=== PATIENT | male | born 1935 | race Caucasian/White ===

== ENCOUNTER 2019-05-21 18:43 | Inpatient (IN) ==
--- NOTE | 2019-05-21 19:24 | PROVIDER DOCUMENTATION ---
HPI-Neurological Disorder - General Chief Complaint: Altered Mental Status Stated Complaint: AMS Time Seen by Provider: 05/21/19 19:22 Allergies/Adverse Reactions: Patient Allergies Allergy/AdvReac Type Severity Reaction Status Date / Time vancomycin Allergy hallucinati Verified 10/30/15 14:09 ons Home Medications: Home Medication List Medication Instructions Recorded Confirmed Last Taken Type Aspirin 81 mg PO DAILY 10/30/15 10/30/15 10/29/15 History Carvedilol 25 mg PO BID 10/30/15 10/30/15 10/29/15 History Diltiazem HCl [Cartia Xt] 240 mg PO DAILY 10/30/15 10/30/15 10/29/15 History Docusate Sodium [Stool Softener] 100 mg PO DAILY 10/30/15 10/30/15 10/29/15 History Glipizide [Glipizide ER] 5 mg PO DAILY 10/30/15 10/30/15 10/29/15 History Glucosamine/D3/Boswellia Reshma 2 each PO DAILY 10/30/15 10/30/15 10/29/15 History [Osteo Bi-Flex Caplet] Levothyroxine [Synthroid] 75 microgm PO DAILY 10/30/15 10/30/15 10/29/15 History Loratadine [Claritin] 10 mg PO DAILY 10/30/15 10/30/15 10/29/15 History Losartan Potassium 100 mg PO DAILY 10/30/15 10/30/15 10/29/15 History Omeprazole 40 mg PO DAILY 10/30/15 10/30/15 10/29/15 History Warfarin Sodium [Coumadin] 6 mg PO QHS #30 tablet 11/02/15 Unknown Rx - History of Present Illness-Neuro Nature of Presenting Problem: pt 83 yo WM w c/o increased confusion and flight of ideas according to patints family, onset 1 week ago, pt has also had cough and congestion, pt is confused and not good historian at this time. pt family also vague historians. pt has HX of several skin cancers and nasal cancer. Character of Altered Mental Status: reports: disoriented, confused Any recent trauma/injury?: reports: none New weakness or altered sensation location:: reports: none Cognitive Baseline: alert, oriented x3 Gait Baseline: uses a cane Associated Symptoms: reports: confusion Similar Symptoms Previously?: No Recently seen or treated by another doctor?: No - Seizure First time to have a seizure?: No Witnessed seizure?: No Review of Systems - Adult - REVIEW OF SYSTEMS - ADULT ROS:: limited per condition Constitutional: reports: no symptoms reported Eyes: reports: no symptoms reported Ears, Nose, Mouth & Throat: reports: no symptoms reported Cardiovascular: reports: no symptoms reported Respiratory: reports: no symptoms reported Gastrointestinal: reports: no symptoms reported Genitourinary: reports: no symptoms reported Musculoskeletal: reports: no symptoms reported Integumentary: reports: no symptoms reported Neurological: reports: see HPI Psychiatric: reports: no symptoms reported Endocrine: reports: no symptoms reported Hematologic/Lymphatic: reports: no symptoms reported Allergic/Immunologic: reports: no symptoms reported All Other Systems: Reviewed and Negative Past History - Adult - PAST MEDICAL HISTORY-ADULT Review of Records: reports: Old Records Reviewed, Nursing Assessment Review, Medications Reviewed Major Childhood Illnesses: reports: denies history Cardiovascular: reports: HTN, hyperlipidemia Endocrine/Immune: reports: Diabetes, thyroid disorder Other Conditions: reports: denies history - PRIOR SURGERIES/PROCEDURES Surgical/Procedure History: reports: orthopedic (extremity) (knee), other (hemmoroid sx) - IMMUNIZATION STATUS Childhood Immunizations: See Nurse Assessment Flu Vaccine: See Nurse Assessment - FAMILY HISTORY Family History: reviewed, not pertinent - SOCIAL HISTORY Smoking: denies Substance Use: none/never Physical Exam- Neurological - Physical Exam-Neuro Initial Vital Signs Reviewed: Yes General Appearance: appears well, alert, other (confused) Eye Exam: bilateral eye: normal inspection, PERRL, EOMI HENMT: normocephalic/atraumatic, moist mucous membranes Head Injury: no evidence of injury Neck: non-tender, full range of motion, supple Respiratory: chest non-tender, lungs clear, normal breath sounds Cardiovascular: normal peripheral pulses, regular rate, rhythm, no edema Abdominal Exam: normal bowel sounds, non tender, soft Lymphatic: no adenopathy Extremity: non-tender, normal inspection, 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 negative: facial droop, facial paresthesias, facial weakness Coordination/Gait: normal finger to nose, normal gait Motor/Sensory: no motor deficit, no pronator drift Neurologic: impact hammer operator II-XII nml as tested, grossly normal Integumentary: normal color, normal turgor Psych/Mental Status: normal mood/affect, other (severe confusion) - Glascow Coma Scale Best Eye Response: (4) open spontaneously Best Verbal Response: (5) oriented Best Motor Response: (6) obeys commands Progress - PLAN OF CARE/RESULTS Progress/Plan/Lab Results: Vital Signs - 8 hr 05/21/19 18:56 Temperature 99 F Pulse Rate 80 Respiratory Rate 16 Blood Pressure 138/76 O2 Sat by Pulse Oximetry 95 Laboratory Results - last 24 hr 05/21/19 05/21/19 05/21/19 19:00 20:02 20:02 WBC RBC Hgb Hct MCV MCH MCHC RDW Std Deviation Plt Count MPV Immature Gran % (Auto) Neut % (Auto) Lymph % (Auto) [place] % (Auto) Eos % (Auto) Baso % (Auto) Immature Gran # (Auto) Neut # (Auto) Lymph # (Auto) [place] # (Auto) Eos # (Auto) Baso # (Auto) PT INR PTT ([place] FS) Sodium Potassium Chloride Carbon Dioxide Anion Gap BUN Creatinine Estimated GFR/1.73 m2 BUN/Creatinine Ratio Glucose POC Glucose 80 Calculated Osmolality Calcium Total Bilirubin AST ALT Alkaline Phosphatase Troponin T Total Protein Albumin Globulin Albumin/Globulin Ratio Urine Source CLEAN CATCH Urine Color YELLOW Urine Turbidity CLEAR Urine pH 6.0 Ur Specific [place] 1.015 Urine Protein 50 A Ur Glucose (Stick) NEGATIVE Ur Ketones (Stick) NEGATIVE Urine Blood NEGATIVE Urine Nitrite NEGATIVE Urine Bilirubin NEGATIVE Urobilinogen Dipstick NORMAL Urine Leukocytes NEGATIVE Urine WBC (Auto) <10 Urine RBC (Auto) <10 U Epithel Cells (Auto) <10 Urine Bacteria (Auto) NEGATIVE Urine Opiates Screen NONE DETECTED Ur Oxycodone Screen NONE DETECTED Urine Methadone Screen NONE DETECTED U Propoxyphene Qual NONE DETECTED Ur Barbituates Screen NONE DETECTED Ur Tricyclics Screen NONE DETECTED Ur Phencyclidine Scrn NONE DETECTED Ur Amphetamines Screen NONE DETECTED U Methamphetamines Scrn NONE DETECTED U Benzodiazepines Scrn NONE DETECTED Urine Cocaine Screen NONE DETECTED U Cannabinoids Screen NONE DETECTED 05/21/19 05/21/19 05/21/19 20:15 20:15 20:15 WBC 6.03 RBC 4.38 L Hgb 12.4 L Hct 38.6 L MCV 88.1 MCH 28.3 MCHC 32.1 L RDW Std Deviation 14.1 Plt Count 154 MPV 10.7 H Immature Gran % (Auto) 0.2 Neut % (Auto) 69.3 Lymph % (Auto) 11.8 L [place] % (Auto) 13.4 H Eos % (Auto) 4.8 Baso % (Auto) 0.5 Immature Gran # (Auto) 0.01 Neut # (Auto) 4.18 Lymph # (Auto) 0.71 L [place] # (Auto) 0.81 H Eos # (Auto) 0.29 Baso # (Auto) 0.03 PT INR PTT (Actin FS) Sodium 139 Potassium 4.4 Chloride 100 Carbon Dioxide 24 L Anion Gap 15 BUN 30 H Creatinine 1.9 H Estimated GFR/1.73 m2 34 BUN/Creatinine Ratio 16 Glucose 124 H POC Glucose Calculated Osmolality 285 Calcium 9.2 Total Bilirubin 1.00 AST 50 H ALT 47 H Alkaline Phosphatase 192 H Troponin T < 0.010 Total Protein 7.0 Albumin 4.2 Globulin 3.0 Albumin/Globulin Ratio 2.0 Urine Source Urine Color Urine Turbidity Urine pH Ur Specific [place] Urine Protein Ur Glucose (Stick) Ur Ketones (Stick) Urine Blood Urine Nitrite Urine Bilirubin Urobilinogen Dipstick Urine Leukocytes Urine WBC (Auto) Urine RBC (Auto) U Epithel Cells (Auto) Urine Bacteria (Auto) Urine Opiates Screen Ur Oxycodone Screen Urine Methadone Screen U Propoxyphene Qual Ur Barbituates Screen Ur Tricyclics Screen Ur Phencyclidine Scrn Ur Amphetamines Screen U Methamphetamines Scrn U Benzodiazepines Scrn Urine Cocaine Screen U Cannabinoids Screen 05/21/19 20:15 WBC RBC Hgb Hct MCV MCH MCHC RDW Std Deviation Plt Count MPV Immature Gran % (Auto) Neut % (Auto) Lymph % (Auto) [place] % (Auto) Eos % (Auto) Baso % (Auto) Immature Gran # (Auto) Neut # (Auto) Lymph # (Auto) [place] # (Auto) Eos # (Auto) Baso # (Auto) PT 14.1 INR 1.04 PTT (Actin FS) 34.1 Sodium Potassium Chloride Carbon Dioxide Anion Gap BUN Creatinine Estimated GFR/1.73 m2 BUN/Creatinine Ratio Glucose POC Glucose Calculated Osmolality Calcium Total Bilirubin AST ALT Alkaline Phosphatase Troponin T Total Protein Albumin Globulin Albumin/Globulin Ratio Urine Source Urine Color Urine Turbidity Urine pH Ur Specific [place] Urine Protein Ur Glucose (Stick) Ur Ketones (Stick) Urine Blood Urine Nitrite Urine Bilirubin Urobilinogen Dipstick Urine Leukocytes Urine WBC (Auto) Urine RBC (Auto) U Epithel Cells (Auto) Urine Bacteria (Auto) Urine Opiates Screen Ur Oxycodone Screen Urine Methadone Screen U Propoxyphene Qual Ur Barbituates Screen Ur Tricyclics Screen Ur Phencyclidine Scrn Ur Amphetamines Screen U Methamphetamines Scrn U Benzodiazepines Scrn Urine Cocaine Screen U Cannabinoids Screen Orders Category Date Time Status Cardiac Monitoring DIRECTED Care 05/21/19 18:53 Active Finger Stick Blood Sugar (ED) DIRECTED Care 05/21/19 18:53 Active Misc. NRSG Communication Order DIRECTED Care 05/21/19 18:54 Active Oxygen Therapy- ED Nursing DIRECTED Care 05/21/19 18:54 Active Saline Loc NOW Care 05/21/19 18:53 Active CHEST-PORTABLE [RAD] Stat Exams 05/21/19 18:[address] HEAD W/O CONTRAST [CT] Stat Exams 05/21/19 18:53 Completed BLOOD CULTURE [BLDCUL] Stat Lab 05/21/19 20:37 Ordered CBC WITH ELECTRONIC DIFF [HEME] Stat Lab 05/21/19 20:15 Completed COMPREHENSIVE METABOLIC PANEL [CHEM] Stat Lab 05/21/19 20:15 Completed LACTATE, PLASMA [CHEM] Stat Lab 05/21/19 21:28 Ordered PROTIME WITH INR [COAG] Stat Lab 05/21/19 20:15 Completed PTT [COAG] Stat Lab 05/21/19 20:15 Completed TROPONIN T Stat Lab 05/21/19 20:15 Completed URINALYSIS W/POSS RFLX CULT [URINALYSIS] Stat Lab 05/21/19 20:02 Com[address] URINE DRUG SCREEN PL Stat Lab 05/21/19 20:02 Completed 0.9% Sodium Chloride Inj [Ns] 1,000 ml Med 05/21/19 20:24 Discontinued IV 999 mls/hr CefTRIAXONE [Rocephin] 1 gm Med 05/21/19 20:24 Discontinued 0.9% Sodium Chloride Inj [Ns] 50 ml IV NOW EKG [EKG] Stat Ther 05/21/19 18:54 Ordered discussed admission to hospital , dr fitzpatrick accepted pt. Result Diagrams: 05/21/19 20:15 05/21/19 20:15 - XRAY 1 XRAY Study: Chest Impression: Normal Comparison with other Films: no changes - CT/MRI 1 CT Study: Head CT Results: ear effusions, no acute hemmorage - CONSULTS/PCP/HOSPITALIST Notification #1 *Consult/PCP/Hospitalist*: penot Time Discussed: 21:38 Consult Disposition: Admit Departure - Departure Date of Disposition Decision: 05/21/19 Time of Disposition Decision: 21:38 DIAGNOSIS: Encephalopathy, AMS (altered mental status) Disposition: ADMITTED INPATIENT 09 Certified Medical Emergency: Emergent Condition: Stable Referrals and Follow-Ups: None,PCP [Primary Care Provider] - - Critical Care Note This patient required my direct & personal management of CC.: No Attestation - Physician/ VISHNU Attestation Patient care was provided by Advanced Practice Provider:: Yes Advanced Practice Provider:: Jeremiah Diego Advanced Practice Provider documentation review:: The Mid-level provider documentation, treatment plan and medical decision making was reviewed by the physician who agrees with all treatment and medical decision making by the MLP. The physician spent face to face time with patient:: No Advanced Practice Provider documentation review:: Supervising physician onsite and consulted in the evaluation and care of this patient. The physician did not have a face to face encounter with the patient. - NIH Stroke Scale NIH Type: Initial Evaluation Level of Consciousness: 0-Alert LOC Questions (ask month and age): 0-Answers Both Correctly LOC Commands (ask to open & close eyes;make a fist, let go): 1-Obeys One Correctly Best Gaze (horizontal eye movement): 0-Normal Visual (use finger movement, counting or visual threat): 0-No Visual Loss Facial Palsy (show teeth or raise eyebrows & close eyes tght: 0-Symmetrical Movement Motor Function-left arm: 0-Normal Motor Function-right arm: 0-Normal Motor Function-left le-Normal Motor Function-right le-Normal Limb Ataxia([id number], or heel to otoole): 0-No Ataxia Sensory(pin prick to face,arms,trunk,legs-compare side/side): 0-No Ataxia Best Language(name item/read sentence.Ex-Down to Earth): 0-No Aphasia Dysarthria(Pt read words or say words Ex.Mama,Tip-Top,Thanks: 0-Normal Articulation Extinction and Inattention: 0-Normal NIH Total Score: 1 NIH Scale Untestable Comment: limited exam due to confusion Modified [place] Score Criteria: 2-slight disability Stroke tPA Guidelines - Inclusion Criteria for IV tPA 18 years old or older: Yes Ischemic stroke with measurable deficit: No Onset <3 hours ago *OR* 3-4.5 hours ago: No - Exclusion Criteria for IV tPA Evidence of intracranial hemorrhage on CT: No Presentation suggest SAH: No CT reveals defined area of hypodensity: No Evidence of AVM, neoplasm, aneurysm: No Seizure at stroke onset: No Active internal bleeding or acute trauma: No Platelet Count Less Than 100,000: No Heparin Within Last 48 HRS (PTT >Lab normal limits): No - Additional Exclusion Criteria for IV tPA Currently on Coumadin: Unable to Obtain Patient older than 80: Yes Prior stroke and diabetes: Yes Baseline NIHSS score > 25: No
--- NOTE | 2019-05-21 19:31 | Diag Imaging Result Doc PS360 ---
EXAM: CT HEAD W/O CONTRAST 05/21/2019 HISTORY: confusion TECHNIQUE: This exam was performed using automated exposure control, adjustment of mA or kV according to patient size, and/or use of iterative reconstruction technique. COMMENT: There is motion artifact. There is minimal periventricular white matter lucency particularly in the left frontal lobe. There is no evidence of mass effect, bleed, or abnormal extra-axial fluid collection. The calvarium is intact. There is fluid in the mastoid air cells bilaterally and in the left middle ear. Some of the ethmoid air cells demonstrate mucosal thickening. Compared to the previous examination of 08/04/2011, there has been no significant change in the appearance the brain. The mastoid effusions and left middle ear fluid are worse. IMPRESSION: Bilateral mastoid effusions, left otitis media. Chronic ischemic microvascular changes. No evidence of acute intracranial disease. Electronically signed by Abhishek Luo 05/21/2019 7:29 PM
--- NOTE | 2019-05-21 19:34 | Diag Imaging Result Doc PS360 ---
EXAM: CHEST-PORTABLE 05/21/2019 HISTORY: confusion TECHNIQUE: AP portable at 1933 COMMENT: Considering differences in technique there has been no significant change in the appearance of the chest since 01/15/2017. IMPRESSION: Stable chest. Electronically signed by Abhishek Luo 05/21/2019 7:32 PM
[2019-05-21 20:07] LABS: URINE SOURCE CLEAN CATCH
[2019-05-21 20:12] LABS: BILIRUBIN URINE NEGATIVE (NEGATIVE); BLOOD URINE NEGATIVE (NEGATIVE); COLOR YELLOW; GLUCOSE URINE NEGATIVE (NEGATIVE); KETONE URINE NEGATIVE (NEGATIVE); LEUKOCYTES URINE NEGATIVE (NEGATIVE); NITRITE URINE NEGATIVE (NEGATIVE); PROTEIN URINE 50 mg/dL (NEGATIVE); SP GRAVITY URINE 1.015; TURBIDITY URINE CLEAR (CLEAR); UROBILINOGEN URINE NORMAL (NORMAL)
[2019-05-21 20:14] LABS: UR EPITHELIAL CELLS <10 /HPF (<10); URINE BACTERIA NEGATIVE /HPF; URINE RBC <10 /HPF (<10); URINE WBC <10 /HPF (<10)
[2019-05-21] MEDS ORDERED: ROCEPHIN 1 GM in NS 50 ML IV ONE (20:24)
[2019-05-21] MEDS ORDERED: NS 1,000 ML IV ONE ×2 (20:24→23:57)
[2019-05-21 20:25] LABS: BASO# 0.03 X1000 (0.0-0.2); BASO% 0.5 % (0.0-0.8); EOS# 0.29 X1000 (0.0-0.7); EOS% 4.8 % (0.0-10.0); HEMATOCRIT 38.6 % (42.0-52.0); HEMOGLOBIN 12.4 g/dL (14.0-18.0); IMM GRAN# 0.01 X1000 (0.0-0.04); IMM GRAN% 0.2 % (0.0-0.5); LYMPH# 0.71 X1000 (1.2-3.4); LYMPH% 11.8 % (20.5-51.1); MCH 28.3 PG (27-31); MCHC 32.1 g/dL (33-37); MCV 88.1 FL (81-99); MONO# 0.81 X1000 (0.11-0.59); MONO% 13.4 % (1.7-9.3); MPV 10.7 FL (7.4-10.4); NEUT# 4.18 X1000 (1.4-6.5); NEUT% 69.3 % (42.2-75.2); PLT 154 X1000 (130-400); RBC 4.38 XMIL (4.7-6.1); RDW 14.1 % (11.5-14.5); WBC 6.03 X1000 (4.8-10.8)
[2019-05-21 20:34] LABS: UR AMPHETAMINES QUAL NONE DETECTED (NONE DETECT); UR BARBITUATES QUAL NONE DETECTED (NONE DETECT); UR BENZODIAZEPIN QUAL NONE DETECTED (NONE DETECT); UR CANNABINOIDS QUAL NONE DETECTED (NONE DETECT); UR COCAINE QUAL NONE DETECTED (NONE DETECT); UR METHADONE QUAL NONE DETECTED (NONE DETECT); UR METHAMPHETAMINE QUAL NONE DETECTED (NONE DETECT); UR OPIATES QUAL NONE DETECTED (NONE DETECT); UR OXYCODONE QUAL NONE DETECTED (NONE DETECT); UR PCP QUAL NONE DETECTED (NONE DETECT); UR PROPOXYPHENE QUAL NONE DETECTED (NONE DETECT); UR TCA QUAL NONE DETECTED (NONE DETECT)
[2019-05-21 20:50] LABS: INR 1.04; PROTIME 14.1 Seconds (11.0-16.0)
[2019-05-21 20:51] LABS: PTT 34.1 Seconds (22.3-41.8)
[2019-05-21 21:00] LABS: ALBUMIN 4.2 g/dL (3.5-5.0); CALCIUM 9.2 mg/dL (8.8-10.2); CREATININE 1.9 mg/dL (0.7-1.2); POTASSIUM 4.4 mmol/L (3.5-5.1)
--- NOTE | 2019-05-21 23:28 | EKG Report ---
Test Performed on : 05/21/2019 8:06:32 PM Test Reason : ro cva Blood Pressure : / mmHG Vent. Rate : 083 BPM Atrial Rate : 083 BPM P-R Int : 178 ms QRS Dur : 106 ms QT Int : 356 ms P-R-T Axes : 078 -04 063 degrees QTc Int : 418 ms Normal sinus rhythm. Normal ECG When compared with ECG of 31-OCT-2015 07:21, No significant change was found Unconfirmed Result
[2019-05-21] MEDS ORDERED: TYLENOL PO PRN (23:57)
[2019-05-21] MEDS ORDERED: ZOFRAN IV PRN (23:57)
[2019-05-22] MEDS ORDERED: STERILE WATER INJ. INJ ONE (05:33)
[2019-05-22] MEDS ORDERED: GEODON IM ONE (05:33)
[2019-05-22] MEDS ORDERED: ATIVAN ONE (05:43)
[2019-05-22] MEDS ORDERED: GEODON ONE (05:43)
[2019-05-22] MEDS ORDERED: STERILE WATER INJ. ONE (05:43)
[2019-05-22] MEDS: GEODON IM PRN ×2 (11:38→17:41)
[2019-05-22] MEDS: STERILE WATER INJ. INJ PRN ×2 (11:39→17:42)
[2019-05-22] MEDS: HUMALOG (PARKWAY) SUBQ SCH ×4 (11:45→21:29)
[2019-05-22] MEDS: OMNICEF PO SCH ×2 (12:49→13:04)
--- NOTE | 2019-05-22 14:45 | HISTORY AND PHYSICAL ---
PRIMARY CARE PHYSICIAN: Dr. Nelson. CHIEF COMPLAINT: Increased confusion x1 to 2 weeks, was diagnosed with a bronchitis, and placed on cefdinir this past . HISTORY OF PRESENTING ILLNESS: This is an 83-year-old male who presents to [facility] ER with family, stating that he has had increased confusion and some flight of ideas that began 1 to 2 weeks ago. He has had cough and congestion, and was seen by his primary care physician this past , and diagnosed with a bronchitis, and placed on cefdinir. The patient this morning, was up in wheelchair, rolling up and down the peralta, trying to go home, was confused. Family arrived and was able to take him back to his room. Son felt that this happened about 6 years ago, and that there was a medical problem going on at that time, and it took him several weeks to clear up, but he did. Currently, his white blood cell count is normal. Urinalysis is normal. Urine drug screen was clear. His RPR was nonreactive. Chest x- ray was stable. Head CT showed some bilateral mastoid effusions and a left otitis media, chronic ischemic microvascular changes, but no evidence of acute intracranial disease. His BUN was 30 with a creatinine of 1.9. His previous creatinine in 2016 was 1.5, so I feel that most likely, this has progressed and may not be far off from his baseline with some underlying chronic kidney disease. His vitamin B12 is 1594. Plasma lactate was normal at 1.3, but he was admitted for further evaluation and treatment. PAST MEDICAL HISTORY: Hypertension, hyperlipidemia, diabetes type 2, and hypothyroidism. PAST SURGICAL HISTORY: Knee surgery and hemorrhoid surgery. FAMILY HISTORY: Reviewed and noncontributory. SOCIAL HISTORY: Currently lives with his . Denies any tobacco, alcohol, or illicit drug use. ALLERGIES: Vancomycin. HOME MEDICATIONS: He takes vitamin C 500 mg p.o. daily, carvedilol 25 mg p.o. b.i.d., diltiazem 240 mg p.o. daily, stool softener 100 mg p.o. b.i.d., glipizide ER 10 mg p.o. b.i.d., Osteo Bi- Flex 2 tablets p.o. daily, levothyroxine 75 mcg p.o. daily, Tradjenta 5 mg p.o. daily, losartan 100 mg p.o. daily, lovastatin 80 mg p.o. at bedtime, Centrum Silver 1 p.o. daily, omeprazole 40 mg p.o. daily, and Xarelto 20 mg p.o. daily. IMAGING AND LABORATORY DATA: Laboratory data showed a white blood cell count of 6.03, hemoglobin 12.4, hematocrit 38.6, platelets 154,000. PT and INR of 14.1 and 1.04. Sodium 139, potassium 4.4, chloride 100, CO2 of 24, BUN of 30, creatinine 1.9, glucose 124. AST of 50, ALT 47, alkaline phosphatase 192. Ammonia was 19. Troponin was less than 0.010. Plasma lactate of 1.3. Vitamin B12 of 1594. Urinalysis was negative. Urine drug screen was negative. RPR was negative. Chest x-ray showed a stable chest. CT showed bilateral mastoid effusions with a left otitis media, chronic ischemic microvascular changes, no evidence of intracranial disease. EKG with a normal sinus rhythm at 83. REVIEW OF SYSTEMS: Unable to obtain from the patient due to his confusion. PHYSICAL EXAMINATION: VITAL SIGNS: On arrival, he had a temperature of 99 degrees, pulse 80, respirations 16, blood pressure 138/76, saturating 95% on room air. GENERAL: This is an 83-year-old, male, who is lying in the bed, unable to answer questions appropriately at this time due to his confusion. HEENT: Normocephalic, atraumatic. Normal ENT inspection. Oropharynx and nares are clear. Eyes: Pupils are equal, round, and reactive to light and accommodation. Extraocular movements are intact. NECK: Normal inspection. Normal range of motion. LUNGS: Clear to auscultation bilaterally with equal lung expansion and chest wall movement. HEART: Regular rate and rhythm. No murmurs, rubs, or gallops. ABDOMEN: Soft, nontender, nondistended. Bowel sounds are present x4 quadrants. MUSCULOSKELETAL: He has 5/5 strength x4 extremities. NEUROLOGICAL: The cranial nerves II through XII appear grossly intact. He does have severe confusion and unable to answer questions appropriately at this time. ASSESSMENT: 1. Altered mental status. 2. Left otitis media. 3. Chronic kidney disease stage 3. 4. Hypothyroidism. 5. Left otitis media. PLAN: He was admitted to the medical unit, placed on telemetry, diabetic diet. We updated and confirmed his home medications, and restarted those as appropriate. We gave him Geodon 10 mg IM every 4 hours p.r.n. We are consulting Yariel Castro. Initially, the son did not want a Yariel Castro consult, stating that he did not feel that it was anything psychological. He felt this was all medical, but I explained to him that there were no medical issues, except for the left otitis media, but they did reconsider and are now letting Yariel Castro consult at this time, so if they agree that he needs inpatient psychiatric treatment, he is medically cleared to be able to go there. He can continue his antibiotic of Omnicef 300 mg p.o. b.i.d. for his left otitis media there. We have a blood culture x2 that is pending. He is on pattern blood sugars with sliding scale insulin, and further orders after seen by attending. Dictated by CODY Alexander for Jose Saravia MD cc: CODY Alexander MD Kenneth E. Mashburn, MD
--- NOTE | 2019-05-22 16:23 | HISTORY AND PHYSICAL ---
SUBJECTIVE: Patient has no major complaints. PHYSICAL EXAMINATION: VITAL SIGNS: Blood pressure 1226/62, heart rate 87, respiratory rate 20, temperature 98.7 degrees, 94% on 2 L. GENERAL: This is an 83-year-old male, reportedly no history of dementia. The altered mental status history is different based on which family member we are talking to. Son feels like he was completely normal on the , no dementia issues. says he has been having more confusion over the last week or so. Then the son says he also has had episodes of confusion previously related to medications, such as vancomycin, so it is unclear. But the patient does answer questions. He is disoriented but he does answer questions appropriately. It is not like he is completely confused, but he does not really realize where he is. He forgets where he is. He tries to get up and around. His medical workup was negative. He has a nonfocal exam so the chances of this being ischemic cerebrovascular disease is unlikely. He has some chronic renal failure which may have progressed. Really other than that, he has some mild elevation in his liver enzymes. Really workup has been negative. Most likely this is dementia with possibly some delirium. Family feels, especially his son, that there is a medical issue. Of course we cannot exactly find 1. PROBLEM LIST: 1. Encephalopathy, may be multifactorial. I will get an MRI tomorrow just to rule out stroke. We may consider getting a neurology opinion if he is still confused, but will we will see how things look tomorrow. 2. Bronchitis, relative hypoxia. Apparently, he did desaturate a little bit. We are going to continue empiric antibiotics, breathing treatments, and follow. Like I said, I am going to CT his chest. According to the son, he has had fevers of 102. But again, the son has not been with him the last several days. I am not quite sure where that information came from. It did not come from the . The looks like she has a motor disorder or some sort of chronic disability or essential tremor. Sometimes it is difficult to understand what she is saying. If we do not have a clear medical reason we will have to have [facility] re-evaluate. They evaluated the patient today. They still felt that he was not stable for psych discharge because there was something wrong with him medically, even though we do not have any proof of that, but they want him observed a little bit longer before they will necessarily take him as inpatient for psych. We will see how things go. This is a [id number] encounter note with CODY Alexander. cc: Jose Saravia MD
--- NOTE | 2019-05-22 16:42 | Diag Imaging Result Doc PS360 ---
EXAM: CT THORAX W/O CONTRAST 05/22/2019 HISTORY: lung mass TECHNIQUE: This exam was performed using automated exposure control, adjustment of mA or kV according to patient size, and/or use of iterative reconstruction technique. COMMENT: There are no previous studies available for comparison. There are atherosclerotic calcifications present in the thoracic aorta. The ascending aorta is slightly distended to almost 4.2 cm. The ascending aorta is not distended. There are calcified nodes in the right hilum and there is extensive coronary calcification. There are no abnormal fluid collections. There is atelectasis or pneumonia in the posterior medial right lower lobe. There is considerable motion artifact. There is COPD particularly in the upper lobes. Some apparent fibrosis is present in the right apex. There are granulomata in the left lower lobe and spleen. IMPRESSION: COPD. Atelectasis versus pneumonia in the right lower lobe. Other nonacute findings as described above. Electronically signed by Abhishek Luo 05/22/2019 4:39 PM
[2019-05-22] MEDS ORDERED: VANCOMYCIN IV PER PHARMACY MISC SCH (20:15)
[2019-05-22] MEDS ORDERED: ROCEPHIN 1 GM in NS 50 ML IV SCH (20:30)
[2019-05-22] MEDS: ATIVAN IV PRN (20:51)
[2019-05-22] MEDS: MEVACOR PO SCH (20:54)
[2019-05-22] MEDS: COREG PO SCH (20:54)
[2019-05-22] MEDS: GLUCOTROL XL PO SCH (20:54)
[2019-05-22] MEDS: COLACE PO SCH (20:54)
[2019-05-23 06:41] LABS: CALCIUM 9.6 mg/dL (8.8-10.2); CREATININE 1.6 mg/dL (0.7-1.2); MAGNESIUM 2.6 mg/dL (1.5-2.7); PHOSPHORUS 3.4 mg/dL (2.7-4.5); POTASSIUM 4.3 mmol/L (3.5-5.1)
[2019-05-23] MEDS: HUMALOG (PARKWAY) SUBQ SCH ×4 (06:42→21:45)
[2019-05-23 06:43] LABS: BASO# 0.06 X1000 (0.0-0.2); BASO% 0.9 % (0.0-0.8); EOS# 0.08 X1000 (0.0-0.7); EOS% 1.2 % (0.0-10.0); HEMATOCRIT 41.4 % (42.0-52.0); HEMOGLOBIN 13.1 g/dL (14.0-18.0); IMM GRAN# 0.02 X1000 (0.0-0.04); IMM GRAN% 0.3 % (0.0-0.5); LYMPH# 0.67 X1000 (1.2-3.4); LYMPH% 10.3 % (20.5-51.1); MCH 28.9 PG (27-31); MCHC 31.6 g/dL (33-37); MCV 91.4 FL (81-99); MONO# 0.64 X1000 (0.11-0.59); MONO% 9.9 % (1.7-9.3); MPV 10.4 FL (7.4-10.4); NEUT# 5.02 X1000 (1.4-6.5); NEUT% 77.4 % (42.2-75.2); PLT 166 X1000 (130-400); RBC 4.53 XMIL (4.7-6.1); RDW 14.3 % (11.5-14.5); WBC 6.49 X1000 (4.8-10.8)
[2019-05-23] MEDS: PRILOSEC PO SCH (07:38)
[2019-05-23] MEDS: SYNTHROID PO SCH ×2 (07:38→08:39)
[2019-05-23] MEDS ORDERED: CUBICIN 500 MG in NS 100 ML IV SCH (08:00)
[2019-05-23] MEDS: COREG PO SCH ×3 (08:37→21:55)
[2019-05-23] MEDS: CARDIZEM CD PO SCH (08:39)
[2019-05-23] MEDS: GLUCOTROL XL PO SCH ×3 (08:39→21:55)
[2019-05-23] MEDS: TRADJENTA PO SCH (08:39)
[2019-05-23] MEDS ORDERED: COZAAR PO SCH (09:00)
[2019-05-23] MEDS: COLACE PO SCH ×3 (12:15→21:54)
[2019-05-23] MEDS: ROCEPHIN 1 GM in NS 50 ML IV SCH (12:44)
[2019-05-23] MEDS: GLUCOSAMINE 500 MG/CHONDROITIN 400 MG PO SCH (12:50)
[2019-05-23] MEDS: THERA M PLUS PO SCH (12:51)
[2019-05-23] MEDS: VITAMIN C PO SCH (12:51)
[2019-05-23] MEDS: XARELTO PO SCH (12:52)
[2019-05-23] MEDS: ZITHROMAX 500 MG/NS 500 MG/250 ML IVPB IV SCH (17:16)
--- NOTE | 2019-05-23 18:15 | PROGRESS NOTE ---
DATE: 05/23/2019 SUBJECTIVE: The patient has no major complaints. OBJECTIVE: Blood pressure 145/79, heart rate 78, respiratory rate 20, temperature 98 degrees, and 99% on 2 L.Cardiovascular: Regular rate and rhythm. Pulmonary: Bilateral breath sounds. Clear to auscultation. GI: Soft, nontender, and nondistended. Bowel sounds are positive. LABORATORY DATA: White count 6, hemoglobin and hematocrit 13 and 41, and platelets of 166,000. Creatinine is 1.6. PROBLEM LIST: 1. Encephalopathy. MRI is ordered, but has not been completed. We will probably get a Neurology opinion and see how he does because he is still very confused. 2. Right lower lobe pneumonia which may explain his delirium. We will continue empiric antibiotics and follow. 3. Type 2 diabetes, aware of diagnosis. We will continue to monitor. DISPOSITION: Pending his clinical status. We will start some Risperdal at night, and see if we can get him calmed down. cc: Jose Saravia MD
[2019-05-23] MEDS: GEODON IM PRN (21:44)
[2019-05-23] MEDS: RISPERDAL M-TAB PO SCH ×2 (21:45→21:57)
[2019-05-23] MEDS: STERILE WATER INJ. INJ PRN (21:45)
[2019-05-23] MEDS: MEVACOR PO SCH ×2 (21:45→21:56)
[2019-05-24] MEDS: PRILOSEC PO SCH (06:03)
[2019-05-24] MEDS: HUMALOG (PARKWAY) SUBQ SCH ×4 (06:03→23:21)
[2019-05-24] MEDS: SYNTHROID PO SCH (06:03)
[2019-05-24 06:51] LABS: BASO# 0.03 X1000 (0.0-0.2); BASO% 0.4 % (0.0-0.8); EOS# 0.28 X1000 (0.0-0.7); EOS% 3.9 % (0.0-10.0); HEMATOCRIT 39.9 % (42.0-52.0); HEMOGLOBIN 12.3 g/dL (14.0-18.0); IMM GRAN# 0.02 X1000 (0.0-0.04); IMM GRAN% 0.3 % (0.0-0.5); LYMPH# 0.72 X1000 (1.2-3.4); LYMPH% 9.9 % (20.5-51.1); MCH 27.6 PG (27-31); MCHC 30.8 g/dL (33-37); MCV 89.7 FL (81-99); MONO# 0.64 X1000 (0.11-0.59); MONO% 8.8 % (1.7-9.3); MPV 10.4 FL (7.4-10.4); NEUT# 5.56 X1000 (1.4-6.5); NEUT% 76.7 % (42.2-75.2); PLT 190 X1000 (130-400); RBC 4.45 XMIL (4.7-6.1); RDW 14.2 % (11.5-14.5); WBC 7.25 X1000 (4.8-10.8)
[2019-05-24 07:15] LABS: CALCIUM 9.2 mg/dL (8.8-10.2); CREATININE 1.8 mg/dL (0.7-1.2); POTASSIUM 4.2 mmol/L (3.5-5.1)
[2019-05-24] MEDS: XARELTO PO SCH (10:32)
[2019-05-24] MEDS: CARDIZEM CD PO SCH (10:32)
[2019-05-24] MEDS: TRADJENTA PO SCH (10:33)
[2019-05-24] MEDS: GLUCOTROL XL PO SCH ×2 (10:33→21:57)
[2019-05-24] MEDS: THERA M PLUS PO SCH (10:33)
[2019-05-24] MEDS: VITAMIN C PO SCH (10:33)
[2019-05-24] MEDS: GLUCOSAMINE 500 MG/CHONDROITIN 400 MG PO SCH (10:33)
[2019-05-24] MEDS: COLACE PO SCH ×2 (10:34→21:57)
[2019-05-24] MEDS: COREG PO SCH ×2 (10:34→21:57)
[2019-05-24] MEDS: ROCEPHIN 1 GM in NS 50 ML IV SCH (10:34)
[2019-05-24] MEDS: ZITHROMAX 500 MG/NS 500 MG/250 ML IVPB IV SCH (17:25)
--- NOTE | 2019-05-24 21:37 | PROGRESS NOTE ---
DATE: 05/24/2019 SUBJECTIVE: The patient is still confused, mumbling nonsensical sentences. OBJECTIVE: Temperature 98.5 degrees, pulse 76, respiratory rate 18, BP 118/76. Generally the patient is in no current respiratory distress. HEENT: Normocephalic. Neck is supple. CV: Regular rate. Chest clear. Abdomen soft. Extremities: Moves all extremities. ASSESSMENT: 1. Acute renal failure. Creatinine currently is stable at 1.8; it was 1.9 on admission. 2. Metabolic encephalopathy of undetermined origin. The patient is scheduled for an MRI today that has been done, but I do not have a final reading. 3. Left otitis media. 4. Chronic kidney disease stage 3. 5. Hypothyroidism. 6. Type 2 diabetes. 7. Right lower lobe pneumonia. PLAN: We are going to continue Rocephin and azithromycin, supportive care, and we will follow. cc: Aditya Booth MD
[2019-05-24] MEDS: MEVACOR PO SCH (21:57)
[2019-05-24] MEDS: GEODON IM PRN (21:58)
[2019-05-24] MEDS: RISPERDAL M-TAB PO SCH (21:58)
[2019-05-24] MEDS: ATIVAN IV PRN (23:29)
[2019-05-24 23:39] VITALS: BP 152/69
[2019-05-25] MEDS ORDERED: NS 1,000 ML ONE (05:29)
[2019-05-25] MEDS ORDERED: EPINEPHRINE SYRINGE ONE (08:19)
[2019-05-25] MEDS ORDERED: SODIUM BICARBONATE 8.4% ONE (08:19)
--- NOTE | 2019-05-26 19:34 | DISCHARGE SUMMARY ---
ADMISSION DATE: 05/21/2019 DISCHARGE DATE: 05/25/2019 DISCHARGE DIAGNOSES: 1. Right lower lobe pneumonia. 2. Type 2 diabetes. 3. Encephalopathy. 4. Acute on chronic renal failure stage 3. 5. Hyperthyroidism. CONSULTATIONS: None. PROCEDURES: None. BRIEF HOSPITAL COURSE: The patient is an 83-year-old male who was admitted secondary to pneumonia and confusion. On the , he was awake, alert. He was in no distress. Staff had checked on early a.m.. On the he had been agitated. It appeared he had been given Ativan earlier and did calm down. He had been checked on according to staff a little bit before 5 and was in no distress. When the staff went to recheck on him at 5:15 to follow up on his labs, they noted that he was not breathing. A code was performed. The patient was pronounced. cc: Aditya Booth MD
== END 2019-05-25 05:37 | disposition expired | DRG 193 ==
LOC: EDBD → P.MEDSURG 18:43 → P.ED 18:43 → SUATTDRO 23:33 → OBSVTOIN 23:33
PROVIDERS: ATTEND Family Medicine